=== PATIENT | male | born 1955 | race Caucasian/White ===

== ENCOUNTER → 2016-05-24 | Outpatient (CLI) | payer OTHER ==
[~2016-05-24] MED LIST: AZIT250T5 PO; FURO20TA4 PO; METO-274 PO; NFLOSA25TA PO; POTA10CA43 PO; SIMV40TA2 PO; WRF5T PO
== END ==
LOC: LAB 16:06
PROVIDERS: ATTEND Family Medicine
DX: Z95.4 Presence of other heart-valve replacement (principal)
CPT/HCPCS: 36415; 85610

== ENCOUNTER → 2016-06-30 | Outpatient (REF) | payer OTHER ==
[2016-06-30 18:25] LABS: ALBUMIN 4.7 g/dL (3.4-5.0); ANION GAP 16.9 MEQ/L (3-15); CALCULATED IONIZED CALCIUM 4.1 mg/dL (3.8-4.6); TOTAL PROTEIN 7.8 g/dL (6.4-8.5)
== END ==
LOC: LAB 17:22
PROVIDERS: ATTEND Family Medicine
DX: I35.1 Nonrheumatic aortic (valve) insufficiency (principal); I10 Essential (primary) hypertension
CPT/HCPCS: 80053; 85610

== ENCOUNTER → 2016-08-03 | Outpatient (CLI) | payer OTHER | LOC: LAB 16:02 | PROVIDERS: ATTEND Family Medicine | DX: Z95.4 Presence of other heart-valve replacement (principal) | CPT/HCPCS: 36415; 85610 ==

== ENCOUNTER → 2016-09-28 | Outpatient (CLI) | payer OTHER | LOC: LAB 15:32 | PROVIDERS: ATTEND Family Medicine | DX: Z95.4 Presence of other heart-valve replacement (principal) | CPT/HCPCS: 36415; 85610 ==